=== PATIENT | female | born 1955 | race Caucasian/White ===

== ENCOUNTER 2020-10-06 15:48 | Outpatient (CLI) | payer BC, SELFPAY | END 2020-10-06 15:49 | disposition home or self-care (01) | LOC: ANHCOVIDVC 15:48 | PROVIDERS: PCP Family Medicine | DX: Z23 Encounter for immunization (principal) | CPT/HCPCS: 0001A; 91300 ==

== ENCOUNTER 2020-10-27 15:49 | Outpatient (CLI) | payer BC, SELFPAY | END 2020-10-27 15:50 | disposition home or self-care (01) | LOC: ANHCOVIDVC 15:49 | PROVIDERS: PCP Family Medicine | DX: Z23 Encounter for immunization (principal) | CPT/HCPCS: 0002A; 91300 ==

== ENCOUNTER 2024-02-08 15:22 | Emergency (ER) | payer MEDICARE, SELFPAY ==
--- NOTE | ~2024-02-08 | XR_ITS ---
XR knee RT 3V DATE: 02/08/2024 16:28 INDICATION: Pain and swelling of right knee for one day TECHNIQUE: AP and lateral views COMPARISON: None FINDINGS: There is osteopenia. No recent fracture or dislocation or joint effusion is evident. No periosteal reaction or bone destru ction. There is mild tricompartment osteoarthritis. No radiopaque intra-articular loose body or chondrocalcinosis is detected. IMPRESSION: Osteopenia Tricompartment mild osteoarthritis No fracture or dislocation or joint effusion is detected Reviewed, dictated and finalized at location J.
[2024-02-08 15:38] VITALS: BP 150/81; PULSE 82; RESP 20; TEMP 36.9; O2SAT 98
[2024-02-08 15:42] VITALS: BP 150/81; PULSE 82; RESP 20; TEMP 36.9; O2SAT 98
--- NOTE | 2024-02-08 16:00 | ED.LOWEXIN ---
HPI - Extremity Injury (Lower) General Chief Complaint: Extremity Injury, Lower Stated Complaint: right knee pain Time Seen by Provider: 02/08/24 16:00 Source: patient Mode of arrival: ambulatory Limitations: no limitations History of Present Illness HPI Narrative: [age] year female presents with complaint of pain and swelling to right knee for 2 days. Denies injury. History of surgery to right knee for meniscus tear. Patient states that she is active. Currently having renovations done in-house so has been moving furniture, stepping over several boxes of seth materials. Has not taking any [id number] medications to treat her pain. Ambulatory with slight limp. Reports when bearing weight on right leg feels like it ?might go out ?. Makes her feel unstable when walking. All Systems reviewed and negative except as noted above. Related Data Home Medications Medication Instructions Recorded Confirmed No Home Medications 01/10/20 02/08/24 Allergies Allergy/AdvReac Type Severity Reaction Status Date / Time No Known Allergies Allergy Unknown Verified 02/08/24 15:42 Review of Systems Review of Systems: CONSTITUTIONAL: Denies fever, chills, or sweats. EYES: Denies visual changes, redness, or discharge. ENT: Denies rhinorrhea, congestion, sore throat, or otalgia. CARDIOVASCULAR: Denies chest pain, palpitations, or edema. RESPIRATORY: Denies cough or dyspnea. GASTROINTESTINAL: Denies abdominal pain, nausea, vomiting, or diarrhea. GENITOURINARY: Denies dysuria or hematuria. SKIN: Denies rash or itching. MUSCULOSKELETAL: Reports pain and swelling to right knee. NEUROLOGIC: Denies headache, numbness, or weakness. PSYCHIATRIC: Denies anxiety or depression. All other systems reviewed are negative, except as documented in HPI. [facility] Past Medical History Medical History (Updated 02/09/24 @ 00:00 by Osmany Gonzalez) Uterine bleeding, dysfunctional Surgical History Surgical History History of bunionectomy History of cholecystectomy History of lateral meniscus repair of left knee History of tonsillectomy Social History Social History (Updated 02/04/23 @ 11:08 by Melinda Navarrete MA) Smoking status: Never smoker Alcohol intake: never Substance use: never Substance use type: does not use Lack of Transportation: No Lack of Food: Never True Current Housing: I Have Housing Concerned About Future Housing: No Difficulty Paying Gas/Electric Bills: No Difficulty Paying for Meds: No Currently Unemployed: No Education: High School Diploma/GED Difficulty w/ Childcare or Family Care: No Living arrangements: with family Occupation/Education: occupation Gender identity (if verbalized by the patient): Female Sexual Orientation (if Verbalized by the Patient): Straight or Heterosexual Spiritual care concerns: Yes Agree to blood products: Yes Comments At time of signature, agree with nursing past medical, surgical, social and family history. There is no relevant family history pertinent to the presenting complaint. Exam Narrative: GENERAL: This is a well-nourished, well-developed patient, in no apparent distress. HEAD: normocephalic, atraumatic. EYES: PERRL. Sclera clear/white. Vision is grossly intact. EARS: External ears normal NOSE: External nose normal NECK: Neck supple, non-tender without lymphadenopathy, masses or thyromegaly. CARDIOVASCULAR: Regular rate and rhythm without murmurs, gallops, or rubs. RESPIRATORY: Clear to auscultation. Breath sounds equal bilaterally. No wheezes, rales, or rhonchi. SKIN: warm, Dry, intact with no suspicious lesions or rash, good texture and turgor. NEURO: awake, alert, and oriented to person, place and time. There were no obvious focal neurologic abnormalities. EXTREMITIES: Swelling to anterior aspect of right knee without erythema or warmth. Tenderness to lateral
== END 2024-02-08 16:55 | disposition home or self-care (01) ==
PROVIDERS: Emergency Provider Nurse Practitioner Family; PCP Family Medicine
DX: M17.11 Unilateral primary osteoarthritis, right knee (principal)
CPT/HCPCS: 73562; 99213; G0463

== ENCOUNTER 2024-02-15 13:24 | Emergency (ER) | payer MEDICARE, SELFPAY ==
--- NOTE | ~2024-02-15 | US_ITS ---
EXAMINATION: US venous doppler LE RT DATE: 02/15/2024 15:09 INDICATION: DVT? . TECHNIQUE: Grayscale images without and with compression and Doppler images of the right lower extrem ity veins were obtained. COMPARISON: None FINDINGS: The right common femoral vein, profunda (deep) femoral vein, femoral vein, popliteal vein, peroneal v ein, posterior tibial veins, and greater saphenous vein are patent. IMPRESSION: Patent right lower extremity veins. No evidence of deep venous thrombosis. Reviewed, dictated and finalized at location K.
[2024-02-15 13:49] VITALS: BP 139/89; PULSE 85; RESP 16; TEMP 36.4; O2SAT 97
--- NOTE | 2024-02-15 15:44 | ED.EXTPRO ---
HPI - Extremity Problem General Chief complaint: Extremity Problem,Nontraumatic Stated complaint: foot lump Time Seen by Provider: 02/15/24 14:11 Source: patient Mode of arrival: ambulatory Limitations: no limitations History of Present Illness HPI Narrative: this is a 69-year-old female that presents to the emergency department for right knee pain. Ongoing over the last week. No recent injury or trauma. Reports swelling and pain about the knee. She was concerned she may have a DVT which prompted her to be seen. She has had x-rays of the knee and is following with her PCP for this currently. Denies fevers or erythema. Related Data Home Medications Medication Instructions Recorded Confirmed No Home Medications 01/10/20 02/08/24 Allergies Allergy/AdvReac Type Severity Reaction Status Date / Time prednisone AdvReac Agitated Verified 02/15/24 13:52 Review of Systems Review of Systems: CONSTITUTIONAL: Denies fever SKIN: Denies rash MUSCULOSKELETAL: Reports joint pain, and myalgia. NEUROLOGIC: Denies numbness, or weakness. All systems reviewed & are unremarkable except as noted in HPI and below PMFSH Past Medical History Medical History (Updated 02/15/24 @ 16:53 by Catherine Da Silva PA-C) Uterine bleeding, dysfunctional Surgical History Surgical History History of bunionectomy History of cholecystectomy History of lateral meniscus repair of left knee History of tonsillectomy Social History Social History Smoking status: Never smoker Alcohol intake: never Substance use: never Substance use type: does not use Lack of Transportation: No Lack of Food: Never True Current Housing: I Have Housing Concerned About Future Housing: No Difficulty Paying Gas/Electric Bills: No Difficulty Paying for Meds: No Currently Unemployed: No Education: High School Diploma/GED Difficulty w/ Childcare or Family Care: No Living arrangements: with family Occupation/Education: occupation Gender identity (if verbalized by the patient): Female Sexual Orientation (if Verbalized by the Patient): Straight or Heterosexual Spiritual care concerns: Yes Agree to blood products: Yes Exam Narrative: GENERAL: Well-appearing, well-nourished, and in no acute distress. HEAD: Normocephalic, atraumatic. EYES: EOMI. EXTREMITIES: Normal range of motion. No edema or erythema. Normal DP pulse. Normal sensation SKIN: Warm, dry, no rash. NEURO: No focal deficits. Alert and oriented x3. PSYCH: Normal mood and affect Course Course Emergency Course: Patient updated on workup and agrees with plan of care Vital Signs Vital signs: Vital Signs Temperature 97.5 F L 02/15/24 13:49 Pulse Rate 85 02/15/24 13:49 Respiratory Rate 16 02/15/24 13:49 Blood Pressure 139/89 02/15/24 13:49 Pulse Oximetry 97 02/15/24 13:49 Temperature 97.5 F L 02/15/24 13:49 Pulse Rate 77 02/15/24 16:04 Respiratory Rate 20 02/15/24 16:04 Blood Pressure 144/91 H 02/15/24 16:04 Pulse Oximetry 100 02/15/24 16:04 MDM - Extremity (Nontraumatic) MDM Narrative Medical decision making narrative: patient presents to the emergency department for right knee pain ongoing over the last week. Presented to the ER for concern of DVT. Patient is neurovascularly intact. She is afebrile and nontoxic appearing. Her vitals are stable. Right lower extremity venous Doppler without evidence of DVT. Patient updated on her workup and agrees with plan of care. Instructed to have continued follow-up with her PCP. She was given warnings to return to the ER Differential Diagnosis Differential diagnosis: Likely deep vein thrombosis of lower extremity and other (osteoarthritis, meniscal tear) Imaging Data Radiologist's impression: ITS Impressions Venous Doppler Study 0
[2024-02-15 16:04] VITALS: BP 144/91; PULSE 77; RESP 20; O2SAT 100
--- NOTE | 2024-02-15 17:04 | PC.NURSE ---
pt not willing to wait on dc papers. pt aware of printing problems d/t [employer] issues. pt did have all instructions verbally given to her. pt had all questions answered prior to leaving the dept
== END 2024-02-15 17:07 | disposition home or self-care (01) ==
PROVIDERS: Emergency Provider Physician Assistant; PCP Family Medicine
DX: M25.561 Pain in right knee (principal)
CPT/HCPCS: 93971; 99284